=== PATIENT | female | born 1940 | race Caucasian/White ===

== ENCOUNTER 2023-07-15 10:30 | Outpatient (REF) | payer MEDICARE, SELFPAY ==
[2023-07-15 11:24] LABS: Blood Urea Nitrogen 19 mg/dL (9-16); Calcium 8.8 mg/dL (8.4-10.2); Estimated Glomerular Filt Rate > 60; Glucose Fasting 84 mg/dL (60-99)
[2023-07-15 11:36] LABS: Anion Gap 17 (12-20); Carbon Dioxide 23 mmol/L (22-29); Chloride 104 mmol/L (96-108); Sodium 141 mmol/L (135-145)
== END 2023-07-15 10:31 | disposition home or self-care (01) ==
LOC: HO.HVNA 10:30
PROVIDERS: PCP Internal Medicine Cardiovascular Disease; Visit Provider Thoracic Surgery (Cardiothoracic Vascular Surgery)
DX: Z95.2 Presence of prosthetic heart valve (principal)
CPT/HCPCS: 36415; 80048

== ENCOUNTER 2023-07-18 14:31 | Outpatient (REF) | payer MEDICARE, SELFPAY ==
[2023-07-18 14:46] LABS: Anion Gap 15 (12-20); Blood Urea Nitrogen 17 mg/dL (9-16); Calcium 8.9 mg/dL (8.4-10.2); Carbon Dioxide 24 mmol/L (22-29); Chloride 106 mmol/L (96-108); Estimated Glomerular Filt Rate > 60; Glucose Random 90 mg/dL (60-115); Potassium 3.9 mmol/L (3.3-5.1); Sodium 141 mmol/L (135-145)
== END 2023-07-18 14:32 | disposition home or self-care (01) ==
LOC: HO.HVNA 14:31
PROVIDERS: Visit Provider Internal Medicine Cardiovascular Disease
DX: E87.6 Hypokalemia (principal)
CPT/HCPCS: 36415; 80048